=== PATIENT | female | born 1945 | race Caucasian/White ===

== ENCOUNTER 2016-08-28 16:18 | Inpatient (IN) | payer OTHER ==
[2016-08-28] MEDS ORDERED: LETS SOLN TOPICAL 1 EA SYR TP ONE ×2 (16:53→16:57)
[2016-08-28] MEDS ORDERED: PROMETHAZINE HCL 25 MG/ML VIAL IVP ONE (17:16)
--- NOTE | 2016-08-28 17:24 | EDPHY ---
H & P Smoking Status: Former smoker Time Seen by Provider: 08/28/16 17:01 HPI/ROS: CHIEF COMPLAINT: Abdominal pain, cramping HISTORY OF PRESENT ILLNESS: 71-year-old female presents to the emergency department by private vehicle complaining of recurring abdominal pain. Patient has a history of ovarian cancer that was originally diagnosed in 2005. The patient developed a recurrence and is currently undergoing chemotherapy. Her last dose of chemo was on , 2 days ago. The patient was admitted to the hospital on August 17, 2016 with small-bowel obstruction which resolved on its own. The patient was discharged on the August 17, 2016 and then had recurring, mild, small bowel obstruction August 20, 2016 that resolved without any other intervention. The patient states yesterday I ate too much. She thinks that this is what is causing her abdominal pain and she feels that this is very similar to her previous small-bowel obstructions. She feels very tired. She describes diffuse abdominal pain. She describes mild nausea. No vomiting. She had a normal bowel movement this morning. She noted some mild abdominal pain last night which became worse earlier this morning. No known fevers or chills. No chest pain. The patient has a drain in her right chest so she states I am always short of breath. The drain has been present for the last 2 months. She describes no new shortness of breath. REVIEW OF SYSTEMS: Constitutional: No fever, no chills. Eyes: No double or blurry vision. ENT: No sore throat. Respiratory: No cough, no new shortness of breath. Cardiac: No chest pain. Gastrointestinal: Abdominal pain as above. No vomiting or diarrhea. Genitourinary: No dysuria. Musculoskeletal: No neck or back pain. Skin: No rashes. Neurological: No headache. (Inocencia Putnam) Past Medical/Surgical History: Ovarian cancer originally diagnosed in 2006 with recurrence currently undergoing chemotherapy. Recurring pleural effusions, peripheral neuropathy, hypothyroidism, sciatica, chronic rhinitis, back surgery, total abdominal hysterectomy (Inocencia Putnam) Social History: (Inocencia Putnam) Physical Exam: General Appearance: Alert, no distress. Afebrile. Pleasant. No obvious distress. Eyes: Pupils equal and round. Extraocular motions are all intact. ENT: Mouth: Mucous membranes moist. Respiratory: No wheezing, rhonchi, or rales, lungs are clear to auscultation. Cardiovascular: Regular rate and rhythm. Gastrointestinal: Bowel sounds are present. Abdomen is soft and diffusely tender to palpate. There is no rebound, guarding or masses noted. No CVA tenderness bilaterally. Neurological: Alert and oriented x 3, cranial nerves II through XII grossly intact Skin: Warm and dry, no rashes. Musculoskeletal: Nontender to palpate along the cervical, thoracic or lumbar spine. Neck is supple. Extremities: Full range of motion and no peripheral edema. Psychiatric: Patient is oriented X 3, there is no agitation. (Inocencia Putnam) Constitutional: Initial Vital Signs Temperature (C) 37.0 C 08/28/16 16:32 Heart Rate 90 08/28/16 16:32 Respiratory Rate 16 08/28/16 16:32 Blood Pressure 144/88 H 08/28/16 16:32 O2 Sat (%) 90 L 08/28/16 16:32 O2 Delivery Mode Room Air Allergies/Adverse Reactions: ondansetron Allergy (Intermediate, Verified 10/07/15 09:49) Other-Enter Comments Sulfa (Sulfonamide Antibiotics) Allergy (Unknown, Verified 08/28/16 18:33) Vomiting iodine Allergy (Verified 08/28/16 18:33) Rash Home Medications: Medication Instructions Recorded lamoTRIgine [LamICTAL 100 MG (*)] 100 mg PO HS #0 tab 10/08/15 Pregabalin [Lyrica 50mg (*)] 50 mg PO HS 08/17/16 Cholecalciferol Vit D3 [Vitamin D3 1,000 units PO DAILY 08/28/16 (*)] Herbals/Supplements -Info Only 1 ea PO DAILY 08/28/16 Levothyroxine [Synthroid 75 mcg 75 mcg PO DAILY 08/28/16 (*)] Dora-3 Fatty Acids [Fish Oil 1000 1,000 mg PO DAILY 08/28/16 mg (*)] QUEtiapine FUMARATE [Seroquel 25 50 mg PO HS 08/28/16 mg (*)] Medical Decision Making - Diagnostics Imaging: Two-view abdominal x-ray reveals recurring small bowel obstruction. This is reviewed by myself the PAC system. Radiology interpretation to follow. (Inocencia Putnam) ED Course/Re-evaluation: 71-year-old female presents to the emergency department by private vehicle with abdominal pain. The patient has had small bowel obstructions on August 17, 2016 and August 20, 2016. Both of these resolved on their own although she required admission to the hospital. Two-view abdominal x-ray reveals evidence of recurring bowel obstruction. This was discussed with the patient. I spoke with Dr. Emery Martinez who will come to evaluate this patient. She will be admitted to Dr. Martinez who saw this patient on her last admission to the hospital. The patient was given 4 mg of IV morphine for pain and 12.5 mg of IV Phenergan for nausea. (Inocencia Putnam) Differential Diagnosis: Including but not limited to bowel obstruction, carcinoma, acute appendicitis, perforation (Inocencia Putnam) Other Provider: Portions of this note were transcribed by a medical imaging technologist. I personally performed the history, physical exam, and medical decision-making; and confirmed the accuracy of the information in the transcribed note. PHYSICIAN DOCUMENTATION: The patient was evaluated and managed by the Physician Batching Operator and myself. I have reviewed the chart and agree with the findings and plan of care as documented. In addition, I examined the patient myself at 1815. History confirmed as identical to previous bowel obstructions. Physical findings as follows: No peritoneal signs. She tells me she has not required NG tube or surgery in the past for bowel obstructions. Plan for more pain medication as needed for symptoms; 4 mg IV morphine. I am the secondary supervising physician. (Kody Alan) - Data Points Laboratory Results: Laboratory Results 08/28/16 17:15 08/28/16 17:15 08/28/16 17:15 WBC 7.23 10^3/uL (3.80-9.50) RBC 4.71 10^6/uL (4.18-5.33) Hgb 14.1 g/dL (12.6-16.3) Hct 42.2 % (38.0-47.0) MCV 89.6 fL (81.5-99.8) MCH 29.9 pg (27.9-34.1) MCHC 33.4 g/dL (32.4-36.7) RDW 15.4 H % (11.5-15.2) Plt Count 287 10^3/uL (150-400) MPV 9.6 fL (8.7-11.7) Neut % (Auto) 82.3 H % (39.3-74.2) Lymph % (Auto) 8.7 L % (15.0-45.0) Swisher % (Auto) 6.1 % (4.5-13.0) Eos % (Auto) 2.1 % (0.6-7.6) Baso % (Auto) 0.4 % (0.3-1.7) Nucleat RBC Rel Count 0.0 % (0.0-0.2) Absolute Neuts (auto) 5.95 10^3/uL (1.70-6.50) Absolute Lymphs (auto) 0.63 L 10^3/uL (1.00-3.00) Absolute Monos (auto) 0.44 10^3/uL (0.30-0.80) Absolute Eos (auto) 0.15 10^3/uL (0.03-0.40) Absolute Basos (auto) 0.03 10^3/uL (0.02-0.10) Absolute Nucleated RBC 0.00 10^3/uL (0-0.01) Immature Gran % 0.4 % (0.0-1.1) Immature Gran # 0.03 10^3/uL (0.00-0.10) Sodium 138 mEq/L (134-144) Potassium 4.4 mEq/L (3.5-5.2) Chloride 98 mEq/L (97-110) Carbon Dioxide 26 mEq/l (22-31) Anion Gap 14 mEq/L (8-16) BUN 15 mg/dL (7-23) Creatinine 1.1 H mg/dL (0.6-1.0) Estimated GFR 49 Glucose 85 mg/dL (70-100) Calcium 9.2 mg/dL (8.5-10.4) Medications Given: Discontinued Medications Morphine Sulfate (Morphine) 4 mg IVP EDNOW ONE Stop: 08/28/16 17:17 Last Admin: 08/28/16 17:25 Dose: 4 mg Morphine Sulfate (Morphine) 4 mg IVP EDNOW ONE Stop: 08/28/16 18:20 Last Admin: 08/28/16 18:28 Dose: 2 mg Promethazine HCl (Phenergan Injection) 12.5 mg IVP EDNOW ONE Stop: 08/28/16 17:17 Last Admin: 08/28/16 17:28 Dose: 12.5 mg Tetracaine/Epinephrine/Lidocaine (Lets Soln Topical) 1 ea TP EDNOW ONE Stop: 08/28/16 16:58 Last Admin: 08/28/16 16:58 Dose: 1 ea Departure - Departure Disposition: [facility] Acute Clinical Impression: SBO (small bowel obstruction) Malignant neoplasm of ovary Qualifiers: Laterality: unspecified laterality Qualifier Code: (C56.9) Malignant neoplasm of unspecified ovary Condition: Good
[2016-08-28 17:58] LABS: % IMMATURE GRANULYOCYTES 0.4 % (0.0-1.1); ABSOLUTE IMMATURE GRANULOCYTES 0.03 10^3/uL (0.00-0.10); ADD DIFF? NO; ADD MORPH? NO; ADD SCAN? NO; ATYPICAL LYMPHOCYTE FLAG 0 (0-99); FRAGMENT RBC FLAG 0 (0-99); HEMATOCRIT 42.2 % (38.0-47.0); HEMOGLOBIN 14.1 g/dL (12.6-16.3); LEFT SHIFT FLG 0 (0-99); LIPEMIA HEMOLYSIS FLAG 80 (0-99); MEAN CELL HEMOGLOBIN 29.9 pg (27.9-34.1); MEAN CELL HEMOGLOBIN CONCENTR. 33.4 g/dL (32.4-36.7); MEAN CELL VOLUME 89.6 fL (81.5-99.8); MEAN PLATELET VOLUME 9.6 fL (8.7-11.7); PLATELET CLUMPS FLAG 10 (0-99); PLATELET COUNT 287 10^3/uL (150-400); RED BLOOD CELL COUNT 4.71 10^6/uL (4.18-5.33); RED CELL DISTRIBUTION WIDTH 15.4 % (11.5-15.2)
[2016-08-28 18:05] LABS: ANION GAP 14 mEq/L (8-16); CALCIUM 9.2 mg/dL (8.5-10.4); CARBON DIOXIDE 26 mEq/l (22-31); CHLORIDE 98 mEq/L (97-110); CREATININE 1.1 mg/dL (0.6-1.0); GLOMERULAR FILTRATION RATE 49; GLUCOSE 85 mg/dL (70-100); POTASSIUM 4.4 mEq/L (3.5-5.2); SODIUM 138 mEq/L (134-144)
--- NOTE | 2016-08-28 18:14 | DX ---
Abdomen, AP Upright and Supine, Two Views, at 5:17 p.m. Clinical History: 71-year-old female with a history of ovarian cancer presenting to the ED complaini ng of nausea and lower abdominal pain since last evening, with a prior history of a small bowel obstr uction and a current Pleurx drain in the right chest. Comparison Study: Abdomen, dated August 21, 2016 at 8:34 a.m. Findings: The caudal margin of a right IJ central venous catheter is seen in the right atrium, and a right-sided Pleurx catheter is again noted. There has been development of a left pleural effusion, with some left basilar atelectasis and/or infiltrate not excluded. There has also been development o f abnormally dilated air-filled loops of small bowel centrally, measuring up to 4.3 cm in diameter, c onsistent with a recurrent small bowel obstruction. There is a small amount of air identified within a portion of the distal transverse colon. There is otherwise a relative paucity of bowel gas presen t. There is no free air. Thoracolumbar scolioses are seen, with degenerative features. There is a ground-glass attenuation in the abdomen, which may reflect some ascites (although this is speculative ). Phleboliths are seen in the caudal right hemipelvis. Impression: 1. Interval development of a left pleural effusion since August 21, 2016. 2. Stable positioning of a right-sided Pleurx catheter. 3. Development of abnormal small bowel dilatation seen centrally, concerning for a recurrent small b owel obstruction.
[2016-08-28] MEDS ORDERED: HYDROmorphONE/DILAUDID 1 MG/ML SYR IVP PRN (18:47)
[2016-08-28] MEDS ORDERED: ACETAMINOPHEN 325 MG TAB PO PRN (18:47)
[2016-08-28] MEDS ORDERED: ONDANSETRON DISINTEGRATING 4 MG TAB PO PRN (18:47)
[2016-08-28] MEDS ORDERED: ONDANSETRON 4 MG/2 ML VIAL IVP PRN (18:47)
[2016-08-28] MEDS ORDERED: THIAMINE HCL IV SCH (19:00)
[2016-08-28] MEDS ORDERED: NS IV SCH (19:00)
[2016-08-28] MEDS ORDERED: VIT K IV SCH (19:00)
[2016-08-28] MEDS ORDERED: MVI IV SCH (19:00)
[2016-08-28] MEDS ORDERED: FOLIC ACID IV SCH (19:00)
--- NOTE | 2016-08-28 19:12 | GHP ---
[f rep st] HISTORY AND PHYSICAL DATE OF ADMISSION: 08/28/2016 CHIEF COMPLAINT: Abdominal pain with nausea. HISTORY OF PRESENT ILLNESS: This is a 71-year-old female, well known to me and the [facility], admitted over the last actually few weeks multiple times with now greater than 8 numbering s mall-bowel obstructions, all of which have resolved with conservative management. Pertinent history: The patient has stage IV ovarian cancer originally diagnosed in 2005. She did undergo a total abdo andi hysterectomy with bilateral oophorectomy and is currently receiving chemotherapy. She states t hat since her last admission she has felt well. However, last evening ate a fairly voluminous meal a nd began to feel sick last night. This morning, she tried to have some clears and an energy sports d rink. She kept it down, but throughout the day has had progressive malaise and abdominal pain. She presents here this evening stating that she feels exhausted. However, after receiving 1 L of fluid, her belly pain feels better. She denies having vomited; however, she did vomit after receiving IV na rcotics in my presence in the Emergency Department, but does endorse having nausea. She denies havin g fevers or chills. PAST MEDICAL HISTORY: Ovarian cancer, now metastatic, recurrent right pleural effusion with a PleurX catheter, peripheral neuropathy, hypothyroid, chronic rhinitis, and sciatica. PAST SURGICAL HISTORY: Total abdominal hysterectomy with bilateral salpingo-oophorectomy performed i n 2005. SOCIAL HISTORY: . Lives alone in [place]. Denies alcohol or illicit drug use. FAMILY HISTORY: Noncontributory. REVIEW OF SYSTEMS: A full 10-point review of systems was performed and unless explicitly stated abov e is otherwise negative. PHYSICAL EXAM: VITAL SIGNS: Temperature of 37 even, heart rate is 81, blood pressure is 140/90, and she is 96% on room air. GENERAL: She is fatigued and sleepy. CV: She has a regular rate and rhyt hm. LUNGS: Clear. PleurX catheter to the right side. ABDOMEN: Soft, minimally distended, minimal ly tender. No rebound tenderness or guarding. Good bowel sounds. EXTREMITIES: Warm. LABS: White blood cell count normal at 7, H and H 14 and 42. Electrolytes are underwhelming. Imaging consists of plain film of her abdomen which shows one small loop of bowel in the left lower q uadrant dilated to 4.3 cm. No other concerning findings. ASSESSMENT AND PLAN: A 71-year-old female with recurrent small bowel obstructions, either adhesions versus metastatic disease, on chemotherapy for metastatic ovarian cancer. I had a long discussion wi th the patient in the emergency room today regarding the number and times she has been admitted, alessandro cially even over the last few weeks, for this recurrent disease. I did tell her that my recommendati on would be to get more aggressive and perform an exploratory laparoscopy, to have look around her ab domen, to see if there is any scar tissue that would be easily addressed, given the fact that she has been admitted numerous times over the past month for similar symptoms, all of which appear to resolv e without intervention. At any rate, will plan to admit. IV fluids, IV pain medications as needed. NG tube if she has nausea and/or vomiting. Will re-evaluate in the morning. If she is better, I w ill feed her. If not, I will plan to perform an exploratory laparoscopy. /[id number]/MODL
[2016-08-28] MEDS: HEPARIN 5,000 UNIT/0.5 ML SYR SC SCH (20:56)
[2016-08-28] MEDS ORDERED: PROMETHAZINE HCL 25 MG/ML VIAL IVP PRN (21:01)
[2016-08-29 04:08] LABS: % IMMATURE GRANULYOCYTES 0.4 % (0.0-1.1); ABSOLUTE IMMATURE GRANULOCYTES 0.02 10^3/uL (0.00-0.10); ADD DIFF? NO; ADD MORPH? NO; ADD SCAN? NO; ATYPICAL LYMPHOCYTE FLAG 20 (0-99); FRAGMENT RBC FLAG 0 (0-99); HEMATOCRIT 36.3 % (38.0-47.0); HEMOGLOBIN 11.6 g/dL (12.6-16.3); LEFT SHIFT FLG 0 (0-99); LIPEMIA HEMOLYSIS FLAG 80 (0-99); MEAN CELL HEMOGLOBIN 29.3 pg (27.9-34.1); MEAN CELL VOLUME 91.7 fL (81.5-99.8); MEAN PLATELET VOLUME 9.3 fL (8.7-11.7); PLATELET CLUMPS FLAG 0 (0-99); PLATELET COUNT 223 10^3/uL (150-400); RED BLOOD CELL COUNT 3.96 10^6/uL (4.18-5.33); RED CELL DISTRIBUTION WIDTH 15.7 % (11.5-15.2)
[2016-08-29] MEDS: HEPARIN 5,000 UNIT/0.5 ML SYR SC SCH ×3 (04:26→21:03)
--- NOTE | 2016-08-29 09:50 | SOAPPROG ---
SOAP Progress Note Assessment/Plan: Assessment/Plan pSBO appears to be resolving with conservative management. Patient hesitant for surgery given prompt decompression. Will advance to clears. Abdomen soft, minimally tender and nondistended. Continues to have robust bowel function with good bowel sounds. Likely advance diet later today if tolerates clears well. 08/29/16 09:49 Subjective: No issues overnight, had BM this AM and continues to pass flatus. Nausea resolved Objective: Vital Signs Temp Pulse Resp BP Pulse Ox 36.8 C 86 18 123/73 H 92 08/29/16 08:00 08/29/16 08:00 08/29/16 08:00 08/29/16 08:00 08/29/16 08:00 Laboratory Results 08/29/16 03:52 08/28/16 08/29/16 08/30/16 05:59 05:59 05:59 Intake Total 1207 Output Total 300 400 Balance 907 -400 Physical Exam - Physical Exam General Appearance: alert, no apparent distress Respiratory: lungs clear, normal breath sounds Cardiac/Chest: regular rate, rhythm Abdomen: other (soft, minimally tender, nondistender, good bowel sounds ) ICD10 Worksheet Patient Problems: Problems Problem Status Diagnosed Ovarian cancer Acute Ovarian epithelial cancer Acute SBO (small bowel obstruction) Acute Partial small bowel obstruction Acute Shortness of breath dyspnea Acute
[2016-08-29] MEDS ORDERED: MAGNESIUM CITRATE 300 ML BOTTLE PO ONE (16:15)
[2016-08-29] MEDS: D5W 1/2 NS W/ 20 KCl/L 1,000 ML IV SCH (18:01)
[2016-08-29] MEDS ORDERED: PREGABALIN 50 MG CAP PO SCH (21:00)
[2016-08-29] MEDS ORDERED: QUEtiapine FUMARATE 25 MG TAB PO SCH (21:00)
[2016-08-29] MEDS ORDERED: lamoTRIgine 100 MG TAB PO SCH (21:00)
[2016-08-29] MEDS: METOCLOPRAMIDE 10 MG/2 ML VIAL IVP PRN (21:23)
--- NOTE | 2016-08-30 00:11 | GCON ---
[f rep st] CONSULTATION HEME-ONC CONSULTATION REASON FOR CONSULTATION: Recurrent SBO in the setting of a recurrent ovarian cancer. RECOMMENDATIONS: Continued best supportive care and avoidance of a laparotomy if possible. EXECUTIVE SUMMARY: Briana is a 71-year-old woman, whom I have followed since a diagnosis for stage III C ovarian cancer. She was initially diagnosed on February 23, 2006. She has had multiple prior therapie s and has had recurrent disease. She presents now with a recurrent SBO. In the past, she has had mu ltiple SBOs and interestingly, it has not been due to carcinomatosis, but rather due to adhesions. S he comes in now with a second SBO in the last 2 weeks with cramping abdominal pain, some heartburn an d now, she this morning is doing better with diarrhea and she has reintroducing a diet she, has been on bevacizumab and has had a significant reduction of a right supraclavicular lymph node mass, and h as had a reduction in her right pleural effusion and in the lymphedema affecting her lower extremitie s. She receives 7.5 Mg/kg every 3 weeks. Her tumor marker, the CA-125, is down from 916 to 564 between June 11 and August 24. PAST MEDICAL HISTORY: Unremarkable, except for some benign but clinically significant back pain rela dunia to degenerative disease. She has had previous surgery. SOCIAL HISTORY: She is a nonsmoker and nondrinker. PAST SURGICAL HISTORY: Also includes a T and A and endometrial ablation for menorrhagia, and a clif st biopsy a number of years ago. FAMILY HISTORY: Noncontributory. Her father at age 87 of prostate cancer and her mother had [place] PD at age 76. She has 3 sisters. She is and has had no children. She is retired from the [employer] REVIEW OF SYSTEMS: Remarkable today for mild cramping abdominal pain, diarrhea. No hematochezia or melena. PHYSICAL EXAM: GENERAL: A well-developed, well-nourished woman, looking her stated age. LYMPHATICS : The supraclavicular lymph node on the right is about 1.5 cm in size and smaller than previous. CH EST: She has a right chest tube in place and the lung is clear. On the left, she has about 1 inch t o 2 inches of dullness and decreased breath sounds. CV: S1, normal S2 ,normally split. No S3, S4, or murmur. BREAST: Free of any focal masses. ABDOMEN: Soft, nontender, and not distended. Bowel sounds are positive, but not hyper. She does not have any abdominal masses palpable. EXTREMITIES: Do not show as much lymphedema. ASSESSMENT: Recurrent small-bowel obstruction. If she were to have surgery, there are a couple of i ssues: 1 is she has carcinomatosis. There is not much we are going to be able to do about it. Latrice skelton, she has had bevacizumab which increases the risks of having a nonhealing event from surgery, and so because of these considerations she would prefer not to have any surgery at this time, and I thin k that is reasonable and will follow her symptoms. If she does have another episode, then we need to get another CAT scan of her abdomen and pelvis. The last scan done has been a while. The last CAT scan at [facility] was August 17 without IV contrast and she was noted to have some bilateral pleural ef fusions and a couple hypodense hepatic lesions consistent with metastases on the liver, and there als o was marked fluid-filled distention throughout the small bowel loops suggestive of an SBO, but no fo eb masses. PLAN: Best supportive care. /[id number]/MODL
[2016-08-30] MEDS: HEPARIN 5,000 UNIT/0.5 ML SYR SC SCH ×2 (05:40→13:19)
[2016-08-30] MEDS: D5W 1/2 NS W/ 20 KCl/L 1,000 ML IV SCH (05:40)
[2016-08-30 08:26] VITALS: BP 136/81; PULSE 81; RESP 18; TEMP 98.2; O2SAT 90
[2016-08-30] MEDS ORDERED: LEVOTHYROXINE 75 MCG TAB PO SCH (09:00)
[2016-08-30] MEDS ORDERED: CHOLECALCIFEROL VIT D3 1,000 UNITS TAB PO SCH (09:00)
--- NOTE | 2016-08-30 10:50 | SOAPPROG ---
SOAP Progress Note Assessment/Plan: Assessment/Plan pSBO appears resolved with mag citrate. Abdomen is soft with good bowel sounds, no nausea and tolerating clears. Will plan to ADAT today, d/c once we know she tolerates her diet. Discussed aggressive colon bowel regimen as outpatient as it appears that any constipation causes exacerbations of SBO. 08/29/16 09:49 08/30/16 10:49 Subjective: Having bowel function, no pain. Objective: Vital Signs Temp Pulse Resp BP Pulse Ox 36.8 C 81 18 136/81 H 90 L 08/30/16 08:24 08/30/16 08:24 08/30/16 08:24 08/30/16 08:24 08/30/16 08:24 08/29/16 08/30/16 08/31/16 05:59 05:59 05:59 Intake Total 3139 Output Total 1050 Balance 2089 ICD10 Worksheet Patient Problems: Problems Problem Status Diagnosed Ovarian cancer Acute Ovarian epithelial cancer Acute SBO (small bowel obstruction) Acute Partial small bowel obstruction Acute Shortness of breath dyspnea Acute
--- NOTE | 2016-08-30 13:01 | SOAPPROG ---
SOAP Progress Note Assessment/Plan: Assessment: 1. Recurrent SBO: better today and she will go home on reglan with a f/u in a couple of days in the office. Plan: 08/30/16 13:00 Subjective: Caren is 71 yo F with a SBO is better today. She is going home today. The presumed cause is adhesions but carcinomatosis is a concern but not identified. Objective: Vital Signs Temp Pulse Resp BP Pulse Ox 36.8 C 81 18 136/81 H 90 L 08/30/16 08:24 08/30/16 08:24 08/30/16 08:24 08/30/16 08:24 08/30/16 08:24 08/29/16 08/30/16 08/31/16 05:59 05:59 05:59 Intake Total 3139 Output Total 1050 Balance 2089 + BS Mild distention ICD10 Worksheet Patient Problems: Problems Problem Status Diagnosed Ovarian cancer Acute Ovarian epithelial cancer Acute SBO (small bowel obstruction) Acute Partial small bowel obstruction Acute Shortness of breath dyspnea Acute
[2016-08-30] MEDS: METOCLOPRAMIDE 10 MG/2 ML VIAL IVP PRN (13:19)
[2016-08-30] MEDS ORDERED: NATURAL CALM PO SCH (21:00)
== END 2016-08-30 16:20 | disposition home or self-care (01) | DRG 389 ==
LOC: F1N 19:56 → OBSVTOIN 08-29 09:48
PROVIDERS: ADMIT Surgery; ATTEND Surgery
DX: K56.5 Intestinal adhesions [bands] with obstruction (postinfection) (principal); C78.6 Secondary malignant neoplasm of retroperitoneum and peritoneum; C77.0 Secondary and unspecified malignant neoplasm of lymph nodes of head, face and neck; C78.7 Secondary malignant neoplasm of liver and intrahepatic bile duct; J91.8 Pleural effusion in other conditions classified elsewhere; Z85.43 Personal history of malignant neoplasm of ovary; Z90.722 Acquired absence of ovaries, bilateral; Z90.710 Acquired absence of both cervix and uterus; E03.9 Hypothyroidism, unspecified; M54.30 Sciatica, unspecified side
CPT/HCPCS: 96374; G0378; J2550; J2765; J3411

== ENCOUNTER → 2016-11-03 | Outpatient (CLI) | payer OTHER | LOC: BMCIMAGING 14:01 | PROVIDERS: ATTEND Internal Medicine | DX: J90 Pleural effusion, not elsewhere classified (principal); R91.8 Other nonspecific abnormal finding of lung field; Z97.8 Presence of other specified devices ==

== ENCOUNTER → 2016-12-14 | Outpatient (CLI) | payer OTHER | LOC: FIMAGING 16:08 | PROVIDERS: ATTEND Nurse Practitioner | DX: R06.02 Shortness of breath (principal); J90 Pleural effusion, not elsewhere classified ==

== ENCOUNTER → 2016-12-31 | Outpatient (CLI) | payer OTHER ==
[~2016-12-31] MED LIST: LIDOCAINE 1% 30 ML SDV ONE; NA BICARBONATE 50 MEQ/50 ML VIAL ONE
== END ==
LOC: FIMAGING 09:21
PROVIDERS: ATTEND Internal Medicine Hematology & Oncology
PROC: 0W993ZZ Drainage of Right Pleural Cavity, Percutaneous Approach (ICD-10-PCS; principal; 2016-12-31)
DX: J90 Pleural effusion, not elsewhere classified (principal); C56.9 Malignant neoplasm of unspecified ovary

== ENCOUNTER → 2017-02-23 | Outpatient (CLI) | payer OTHER | LOC: CIMAGING 08:20 | PROVIDERS: ATTEND Internal Medicine Hematology & Oncology | DX: N13.30 Unspecified hydronephrosis (principal); C56.9 Malignant neoplasm of unspecified ovary | CPT/HCPCS: 76770-PO ==

== ENCOUNTER → 2017-04-22 | Outpatient (CLI) | payer OTHER | LOC: FIMAGING 13:25 → EDSTATUS 13:26 | PROVIDERS: ATTEND Hospitalist ==

== ENCOUNTER → 2017-05-10 | Outpatient (CLI) | payer OTHER | LOC: FIMAGING 13:28 | PROVIDERS: ATTEND Hospitalist | PROC: 0W9B3ZZ Drainage of Left Pleural Cavity, Percutaneous Approach (ICD-10-PCS; principal; 2017-05-10) | DX: J90 Pleural effusion, not elsewhere classified (principal) ==